=== PATIENT | female | born 1935 ===

== ENCOUNTER 2020-03-07 09:48 | Emergency (ER) | payer OTHER, SELFPAY ==
[2020-03-07 10:35] LABS: Absolute Lymphocytes (CBC) 1.1 K/uL (0.7-4.9); Hematocrit 43.1 % (36.0-45.0); Lymphocytes % 24.9 % (15.3-44.8); MPV 9.9 fL (7.6-11.3); RBC Red Blood Cell Count 4.74 M/uL (3.86-4.86)
[2020-03-07 10:50] LABS: Potassium 4.1 mmol/L (3.5-5.1)
--- NOTE | 2020-03-07 11:51 | RAD REPORT ---
EXAM DESCRIPTION: CT - CTHCSPWOC - 03/07/2020 10:59 am CLINICAL HISTORY: AMS, fall from wheelchair, head and neck trauma COMPARISON: No comparisons TECHNIQUE: Axial 5 mm thick images of the head were obtained. Axial 2 mm thick images of the cervic al spine were obtained with sagittal and coronal reconstruction images generated and reviewed. All CT scans are performed using dose optimization technique as appropriate and may include automated exposure control or mA/KV adjustment according to patient size. FINDINGS: No intracranial hemorrhage, mass, edema or acute intracranial finding. No suspicion for ac wilton infarction. No extra-axial fluid collections. Mastoid air cells and paranasal sinuses are clear. No globe or orbit abnormality seen. No skull fracture is present. The patient has advanced atrophy an d chronic ischemic change. Ventricles are in proportion to the amount of volume loss. Cervical body height and alignment are normal. All levels show disc space narrowing. Endplate spurrin g seen throughout the cervical spine. Uncovertebral joint hypertrophy is present at multiple levels. There is mild right foraminal encroachment at C3-4. Moderate bilateral foraminal stenosis at C4-5 and C5-6. Advanced left foraminal stenosis at C6-7. No fracture or acute bony abnormality. Central felicia l detail is inherently limited. No paraspinal mass or hematoma. IMPRESSION: Advanced atrophy and chronic ischemic change with no acute intracranial finding. Advanced degenerative change of the cervical spine as detailed. No acute finding.
--- NOTE | 2020-03-07 12:12 | RAD REPORT ---
EXAM DESCRIPTION: RAD - Pelvis - 03/07/2020 11:02 am CLINICAL HISTORY: AMS COMPARISON: No comparisons TECHNIQUE: AP imaging of the pelvis was obtained. FINDINGS: Bilateral superior pubic rami at pubic symphysis show evidence for fracture. There appears to be remodeling change in this is most likely old injury. Correlation is needed with any acute pain symptoms at the pubic symphysis. Overlying bowel content limits detail. No ischium fracture confirme d. Iliac bones are intact. Mild SI joint degenerative change present. No proximal femur fracture or dislocation. IMPRESSION: Bilateral superior pubic rami fractures of the pubic symphysis are present but appear to be chronic. Overlying superimposed bowel limits assessment. No proximal femur fracture identified.
--- NOTE | 2020-03-07 12:42 | EDPHYS ---
Physician Documentation [facility] Name: Angelica Pierre Age: 84 yrs Sex: Female : 1935 Arrival Date: 03/07/2020 Time: 09:50 Bed 16 Private MD: ED Physician Isaac Chen HPI: 03/07 18:05 This 84 yrs old Unknown Female presents to ER via EMS with complaints of confused, kdr possible hip fracture. 18:05 The patient was sent from [place] for possible hip fracture. There is no certain kdr mechanism. The patient has significant dementia and is unable to assist in the evaluation in any way. Onset: The symptoms/episode began/occurred at an unknown time. Severity of symptoms: At their worst the symptoms were. It is unknown whether or not the patient has had similar symptoms in the past. The patient has not recently seen a physician. Historical: - Allergies: 10:09 codeine sulfate; ph 10:09 Erythromycin; ph 10:09 meloxicam; ph 10:09 Remeron; ph - Home Meds: 13:15 Bumex Oral 0.5 mg every 48 hrs [Active]; buspirone 10 mg Oral tab 2 tabs 3 times per ca1 day [Active]; Depakote 125 mg Oral TbEC 6 tab 2 times per day [Active]; escitalopram oxalate 10 mg oral tab 1 tab once daily [Active]; Klonopin 0.5 mg Oral tab 1 tab 2 times per day [Active]; levothyroxine 125 mcg tab 1 tab once daily [Active]; memantine 10 mg oral tab 1 tab 2 times per day [Active]; metoprolol tartrate 25 mg Oral tab 1 tab once daily [Active]; potassium chloride 10 mEq Oral cpER 1 cap once daily [Active]; - PMHx: 10:09 malnutrition; COVID; Hypothyroidism; Hyperlipidemia; Dementia; Depression; delusional ph disorder; - Immunization history:: Adult Immunizations unknown. - Social history:: Smoking status: unknown. ROS: 18:05 Constitutional: Unable to obtain Eyes: Negative for injury, pain, redness, and kdr discharge, Neck: Negative for injury, pain, and swelling. 18:05 Unable to obtain ROS due to baseline dementia. Exam: 18:05 Constitutional: This is a well developed, well nourished patient who is awake, alert, kdr and in no acute distress. Head/Face: Normocephalic, atraumatic. Eyes: Pupils equal round and reactive to light, extra-ocular motions intact. Lids and lashes normal. Conjunctiva and sclera are non-icteric and not injected. Cornea within normal limits. Periorbital areas with no swelling, redness, or edema. Neck: Trachea midline, no thyromegaly or masses palpated, and no cervical lymphadenopathy. Supple, full range of motion without nuchal rigidity, or vertebral point tenderness. No Meningismus. Chest/axilla: Normal chest wall appearance and motion. Nontender with no deformity. No lesions are appreciated. Cardiovascular: Regular rate and rhythm with a normal S1 and S2. No gallops, murmurs, or rubs. Normal PMI, no JVD. No pulse deficits. Respiratory: Lungs have equal breath sounds bilaterally, clear to auscultation and percussion. No rales, rhonchi or wheezes noted. No increased work of breathing, no retractions or nasal flaring. Abdomen/GI: Soft, non-tender, with normal bowel sounds. No distension or tympany. No guarding or rebound. No evidence of tenderness throughout. Back: No spinal tenderness. No costovertebral tenderness. Full range of motion. Skin: Warm, dry with normal turgor. Normal color with no rashes, no lesions, and no evidence of cellulitis. MS/ Extremity: Pulses equal, no cyanosis. Neurovascular intact. Full, normal range of motion. 18:05 Neuro: Orientation: unable to test, the patient has a history of dementia. Vital Signs: 10:04 BP 152 / 109; Pulse 81; Resp 18; Temp 98.0; Pulse Ox 95% on R/A; ph 11:00 BP 115 / 72; Pulse 85; Resp 19 S; Pulse Ox 100% on R/A; ca1 11:53 BP 126 / 48; Pulse 48; Resp 15 S; Pulse Ox 100% on R/A; ca1 12:28 BP 131 / 85; Pulse 57; Resp 16 S; Pulse Ox 100% on R/A; ca1 13:42 BP 125 / 85; Pulse 59; Resp 15 S; Pulse Ox 100% on R/A; ca1 14:50 BP 131 / 73; Pulse 61; Resp 16 S; Pulse Ox 100% on R/A; ca1 15:55 BP 128 / 81; Pulse 67; Resp 16 S; Pulse Ox 100% on R/A; ca1 MDM: 12:42 Patient medically screened. kdr 18:10 Data reviewed: vital signs, nurses notes, lab test result(s), radiologic studies. kdr Counseling: I had a detailed discussion with the patient and/or guardian regarding: the historical points, exam findings, and any diagnostic results supporting the discharge/admit diagnosis, lab results, radiology results, the need for outpatient follow up. 03/07 10:06 Order name: CBC with Diff; Complete Time: 11:48 kdr 03/07 10:06 Order name: Chem 7; Complete Time: 11:48 kdr 03/07 10:06 Order name: CT Head C Spine; Complete Time: 12:34 kdr 03/07 10:06 Order name: Pelvis XRAY; Complete Time: 12:34 kdr 03/07 12:58 Order name: Urine Dipstick--Ancillary (enter results) em1 03/07 10:06 Order name: Urine Dipstick-Ancillary (obtain specimen); Complete Time: 12:28 kdr Administered Medications: 13:04 Drug: Bactrim - Trimethoprim-Sulfamethoxazole (40mg - 200mg / 5mL) 4 tsp Route: PO; ca1 13:16 Follow up: Response: No adverse reaction ca1 Disposition: 03/07/20 12:42 Discharged to Home. Impression: Altered mental status, unspecified, Urinary tract infection, site not specified. - Condition is Stable. - Discharge Instructions: Confusion, Urinary Tract Infection, Adult, [id number]-[id number]. - Prescriptions for sulfamethoxazole- trimethoprim 200-40 mg/5 mL Oral Suspension - take 20 milliliter by ORAL route every 12 hours for 7 days; 280 milliliter. - Medication Reconciliation Form, Thank You Letter, Antibiotic Education, SBAR form form. - Follow up: Private Physician; When: 2 - 3 days; Reason: If symptoms return, Further diagnostic work-up, Recheck today's complaints, Continuance of care, Re-evaluation by your physician. - Problem is new. - Symptoms have improved. Signatures: Dispatcher [employer] Isaac Vallecillo MD MD kdr Janeth Zacarias RN RN ph AcobDestiny RN RN ca1 Corrections: (The following items were deleted from the chart) 10:22 10:10 Immunization history: Adult Immunizations up to date, ca1 ca1 16:36 12:42 03/07/2020 12:42 Discharged to Home. Impression: Altered mental status, ca1 unspecified; Urinary tract infection, site not specified. Condition is Stable. Forms are Medication Reconciliation Form, Thank You Letter, Antibiotic Education, Prescription Opioid Use. Follow up: Private Physician; When: 2 - 3 days; Reason: If symptoms return, Further diagnostic work-up, Recheck today's complaints, Continuance of care, Re-evaluation by your physician. Problem is new. Symptoms have improved. kdr
--- NOTE | 2020-03-07 12:42 | ER ---
Nurse's Notes [facility] Name: Angelica Pierre Age: 84 yrs Sex: Female : 1935 Arrival Date: 03/07/2020 Time: 09:50 Bed 16 Private MD: Diagnosis: Altered mental status, unspecified;Urinary tract infection, site not specified Presentation: 03/07 10:04 Chief complaint: EMS states: Pt from [place] hx of dementia, EMS called for possible ph hip fracture d/t pt falling from wheelchair, no obvious injuries noted to pt, no shortening or rotation of legs, no pain noted upon palpation, pt crying and appears frightened upon arrival to ED. Coronavirus screen: Client denies travel out of the [place] in the last 14 days. At this time, the client does not indicate any symptoms associated with coronavirus-19. Ebola Screen: No symptoms or risks identified at this time. Initial Sepsis Screen: Does the patient meet any 2 criteria? No. Patient's initial sepsis screen is negative. Does the patient have a suspected source of infection? No. Patient's initial sepsis screen is negative. Risk Assessment: Do you want to hurt yourself or someone else? Patient reports no desire to harm self or others. Onset of symptoms was March 07, 2020. 10:04 Method Of Arrival: EMS: [facility] ph 10:04 Acuity: CAROL 3 ph Historical: - Allergies: 10:09 codeine sulfate; ph 10:09 Erythromycin; ph 10:09 meloxicam; ph 10:09 Remeron; ph - Home Meds: 13:15 Bumex Oral 0.5 mg every 48 hrs [Active]; buspirone 10 mg Oral tab 2 tabs 3 times per ca1 day [Active]; Depakote 125 mg Oral TbEC 6 tab 2 times per day [Active]; escitalopram oxalate 10 mg oral tab 1 tab once daily [Active]; Klonopin 0.5 mg Oral tab 1 tab 2 times per day [Active]; levothyroxine 125 mcg tab 1 tab once daily [Active]; memantine 10 mg oral tab 1 tab 2 times per day [Active]; metoprolol tartrate 25 mg Oral tab 1 tab once daily [Active]; potassium chloride 10 mEq Oral cpER 1 cap once daily [Active]; - PMHx: 10:09 malnutrition; COVID; Hypothyroidism; Hyperlipidemia; Dementia; Depression; delusional ph disorder; - Immunization history:: Adult Immunizations unknown. - Social history:: Smoking status: unknown. Screenin:10 Abuse screen: Denies threats or abuse. Denies injuries from another. Nutritional ca1 screening: No deficits noted. Tuberculosis screening: No symptoms or risk factors identified. Fall Risk Fall in past 12 months (25 points). Secondary diagnosis (15 points) dementia, IV access (20 points). Ambulatory Aid- Crutches/Cane/Walker (15 pts). Total Urbano Fall Scale indicates High Risk Score (45 or more points). Fall prevention measures have been instituted. Side Rails Up X 2 Frequent Obs/Assessments Occuring. Assessment: 10:10 General: Appears in no apparent distress. slender, Behavior is anxious, crying. Pain: ca1 Noted to be crying, Unable to use pain scale. Does not appear to understand pain scale. Neuro: Level of Consciousness is awake, confused, Oriented to none. Cardiovascular: Heart tones S1 S2 present Capillary refill < 3 seconds Patient's skin is warm and dry. Respiratory: Airway is patent Respiratory effort is even, unlabored, Respiratory pattern is regular, symmetrical, Breath sounds are clear bilaterally. GI: Abdomen is flat, non-distended, Bowel sounds present X 4 quads. Abd is soft and non tender X 4 quads. : No signs and/or symptoms were reported regarding the genitourinary system. EENT: No signs and/or symptoms were reported regarding the EENT system. Derm: Skin is fragile, is thin, Skin is pink, warm \T\ dry. Bruising that is dark purple, on right arm. Musculoskeletal: Circulation, motion, and sensation intact. Capillary refill < 3 seconds. 11:00 Reassessment: Patient appears in no apparent distress at this time. No changes from ca1 previously documented assessment. Patient and/or family updated on plan of care and expected duration. Pain level reassessed. 11:53 Reassessment: Patient appears in no apparent distress at this time. No changes from ca1 previously documented assessment. Patient and/or family updated on plan of care and expected duration. Pain level reassessed. 12:55 Reassessment: Patient appears in no apparent distress at this time. No changes from ca1 previously documented assessment. Patient and/or family updated on plan of care and expected duration. Pain level reassessed. 13:00 Reassessment: faxed lab results and notes to [facility]. 13:40 Reassessment: spoke with Ryann, has reviewed results and will arrange [facility] to transport pt back to facility. 14:10 Reassessment: Patient appears in no apparent distress at this time. No changes from ca1 previously documented assessment. Awaiting transport. 15:03 Reassessment: Patient appears in no apparent distress at this time. No changes from ca1 previously documented assessment. [facility] ambulance ETA 15 minutes. 15:50 Reassessment: Patient appears in no apparent distress at this time. No changes from ca1 previously documented assessment. Vital Signs: 10:04 BP 152 / 109; Pulse 81; Resp 18; Temp 98.0; Pulse Ox 95% on R/A; ph 11:00 BP 115 / 72; Pulse 85; Resp 19 S; Pulse Ox 100% on R/A; ca1 11:53 BP 126 / 48; Pulse 48; Resp 15 S; Pulse Ox 100% on R/A; ca1 12:28 BP 131 / 85; Pulse 57; Resp 16 S; Pulse Ox 100% on R/A; ca1 13:42 BP 125 / 85; Pulse 59; Resp 15 S; Pulse Ox 100% on R/A; ca1 14:50 BP 131 / 73; Pulse 61; Resp 16 S; Pulse Ox 100% on R/A; ca1 15:55 BP 128 / 81; Pulse 67; Resp 16 S; Pulse Ox 100% on R/A; ca1 ED Course: 09:50 Patient arrived in ED. em1 09:55 Isaac Chen MD is Attending Physician. kdr 09:57 Destiny Lackey, KEYANA is Primary Nurse. ca1 10:06 Triage completed. ph 10:09 Arm band placed on Patient placed in an exam room, on a stretcher, on pulse oximetry. ph 10:10 Patient has correct armband on for positive identification. Placed in gown. Bed in low ca1 position. Call light in reach. Side rails up X2. Pulse ox on. NIBP on. Warm blanket given. 10:11 Destiny Lackey, RN is Primary Nurse. ca1 10:18 Initial lab(s) drawn, by ms, sent to lab. Inserted saline lock: 22 gauge in left ca1 antecubital area, using aseptic technique. Blood collected. 10:20 Chem 7 Sent. ca1 10:20 CBC with Diff Sent. ca1 11:00 CT Head C Spine In Process Unspecified. EDMS 11:04 Pelvis XRAY In Process Unspecified. EDMS 12:28 Straight cath inserted, using sterile technique, 18 Fr. Specimen obtained. Returned ca1 blas urine. Patient tolerated well. 14:11 No provider procedures requiring assistance completed. ca1 16:14 IV discontinued, intact, bleeding controlled, No redness/swelling at site. Pressure ca1 dressing applied. Administered Medications: 13:04 Drug: Bactrim - Trimethoprim-Sulfamethoxazole (40mg - 200mg / 5mL) 4 tsp Route: PO; ca1 13:16 Follow up: Response: No adverse reaction ca1 Output: 12:28 Urine: 250ml (Straight Cath); Total: 250ml. ca1 Outcome: 12:42 Discharge ordered by . kdr 16:14 Discharged to senior care. Report called to Report by KEYANA Hartleysenior construction estimator form ca1 completed. 16:14 Condition: stable 16:14 Discharge instructions given to EMS, Instructed on discharge instructions, follow up and referral plans. 16:36 Patient left the ED. ca1 Signatures: Dispatcher [employer] EDMS Isaac Chen MD MD kdr Odilia Mejia, Bonifacio Winston RN 1 Janeth Zacarias RN RN Destiny Meneses RN RN ca1 Corrections: (The following items were deleted from the chart) 10:22 10:10 Immunization history: Adult Immunizations up to date, ca1 ca1
[2020-03-07 13:01] LABS: Urine Blood NEGATIVE (NEG); Urine Glucose NEGATIVE (NEG); Urine Protein NEGATIVE (NEG)
[2020-03-07] MEDS ORDERED: SULFAMETH/TRIMETHOPRIM 240 MG/30 ML UDBOT ONE (13:05)
[2020-03-07 17:04] VITALS: TEMP 98
[2020-03-07 17:05] VITALS: O2SAT 100
[2020-03-07 17:15] VITALS: BP 128/81
== END 2020-03-07 16:36 | disposition home or self-care (01) ==
LOC: ER 09:48
DX: N39.0 Urinary tract infection, site not specified (principal); E03.9 Hypothyroidism, unspecified; E78.5 Hyperlipidemia, unspecified; F03.90 Unspecified dementia, unspecified severity, without behavioral disturbance, psychotic disturbance, mood disturbance, and anxiety; Z86.19 Personal history of other infectious and parasitic diseases; Z88.3 Allergy status to other anti-infective agents; Z88.5 Allergy status to narcotic agent; Z88.6 Allergy status to analgesic agent; Z88.8 Allergy status to other drugs, medicaments and biological substances
CPT/HCPCS: 36415; 51702; 70450; 72125; 72170; 80048; 81003; 85025; 99284

== ENCOUNTER 2020-08-24 12:22 | Inpatient (IN) | payer OTHER ==
--- OUTSIDE RECORDS SUMMARY | 2020-08-24 12:25 | XMS REPORT | Continuity of Care Document ---
:1935 Author Organization [facility] t Address [address] [place] [address] Care Team Providers Name Role Phone Domingo Klein DO Attending Clinician Parker ROGER, Bhaskar Attending Clinician Marcos ROGER, Presley Attending Clinician Problems This patient has no known problems. Allergies, Adverse Reactions, Alerts This patient has no known allergies or adverse reactions. Medications This patient has no known medications. Procedures This patient has no known procedures. Encounters Start End Encounter Admission Attending Care Care Encounter Source Date/Time Date/Time Type Type Clinicians Facility Department ID 2020-05-29 2020-05-29 Patient ANI Klein [id number] 00:00:00 00:00:00 Outreach [facility] [id number] Domingo [facility] [id number] MARGARITO [id number] 2019-12-18 2019-12-18 ANI Delgado [id number] 00:00:00 00:00:00 [facility] [id number] Bhaskar Burgos [id number] Proflou [phone] [address]al [address] 2019-11-19 2019-11-19 RefANI Howell [id number] 00:00:00 00:00:00 [facility] [id number] Bhaskar [place] [id number] Professio [phone] nal [address] 2019-11-14 2019-11-14 Pre Visit [facility] [id number] 00:00:00 00:00:00 Outreach Fer [place] [id number] Edhenrietta Given [id number] Professio [phone] nal [facility] Building 2019-11-14 2019-11-14 Telephone [facility] [id number] 00:00:00 00:00:00 [place] Loretta [id number] Given [id number] Professio [phone] [address] 2019-11-11 2019-11-11 Telephone [facility] [id number] 00:00:00 00:00:00 [place] [id number] Given [id number] Professio [phone] [address] Results This patient has no known results.
[2020-08-24 13:14] LABS: Absolute Lymphocytes (CBC) 1.5 K/uL (0.7-4.9); Basophils % 0.8 % (0-1.3); Hematocrit 33.9 % (36.0-45.0); Lymphocytes % 36.5 % (15.3-44.8); MPV 9.1 fL (7.6-11.3); RBC Red Blood Cell Count 3.35 M/uL (3.86-4.86)
[2020-08-24] MEDS ORDERED: NA CHLORIDE 0.9% 1,000 ML ONE ×3 (13:15→17:12)
--- NOTE | 2020-08-24 13:28 | RAD REPORT ---
EXAM DESCRIPTION: RAD - Chest Single View - 08/24/2020 1:12 pm CLINICAL HISTORY: hypotensive Chest pain. COMPARISON: No comparisons FINDINGS: Portable technique limits examination quality. Opacity is noted in the right lung base with a small pleural effusion suspicious for infiltrate/ pneu monia. The heart is mildly enlarged in size with a tortuous thoracic aorta. No displaced fractures.
[2020-08-24 13:31] LABS: ALT/SGPT 12 U/L (12-78); AST/SGOT 14 U/L (15-37); Albumin 2.4 g/dL (3.4-5.0); Alkaline Phosphatase 59 U/L (45-117); BUN Blood Urea Nitrogen 17 mg/dL (7-18); Bicarbonate 26 mmol/L (21-32); Bilirubin Direct < 0.1 mg/dL (0-0.2); Bilirubin Total 0.2 mg/dL (0.2-1.0); Creatine Phosphokinase 52 U/L (26-192); Glucose Level 81 mg/dL (74-106); Lipase 387 U/L (73-393); Potassium 3.9 mmol/L (3.5-5.1); Protein, Total 5.3 g/dL (6.4-8.2); Sodium Level 148 mmol/L (136-145); Troponin (Emerg Dept Use Only) < 0.02 ng/mL (0.0-0.045)
[2020-08-24] MEDS ORDERED: ALBUTEROL 2.5 MG/3 ML NEB SOL NEB PRN (14:24)
[2020-08-24] MEDS ORDERED: ACETAMINOPHEN 500 MG TAB PO PRN (14:24)
--- NOTE | 2020-08-24 14:24 | ER ---
Nurse's Notes [facility] Name: Angelica Pierre Age: 84 yrs Sex: Female : 1935 Arrival Date: 08/24/2020 Time: 12:41 Bed 8 Private MD: Diagnosis: Sepsis, unspecified organism;Pneumonia, unspecified organism;Altered mental status, unspecified;Hypothermia Presentation: 08/24 12:35 Chief complaint: EMS states: called out for pt being unresponsive from [facility]. On sv EMS arrival pt was screaming (pt's normal, hx Dementia). SBP 60-70s. Staff reported pt had fallen on Sunday and obtained a skin tear to the left elbow. Coronavirus screen: Client denies travel out of the [place] in the last 14 days. At this time, the client does not indicate any symptoms associated with coronavirus-19. Ebola Screen: No symptoms or risks identified at this time. Risk Assessment: Do you want to hurt yourself or someone else? Patient reports no desire to harm self or others. Onset of symptoms was August 24, 2020. 12:35 Method Of Arrival: EMS: [facility] sv 12:35 Acuity: CAROL 3 sv 14:36 Initial Sepsis Screen: Does the patient meet any 2 criteria? Temp <36.0*C (96.8*F)) or ap3 > 38.3*C (100.9*F). Altered Mental Status. Yes Does the patient have a suspected source of infection? No. Patient's initial sepsis screen is negative. Historical: - Allergies: 12:53 codeine sulfate; sv 12:53 Erythromycin; sv 12:53 meloxicam; sv 12:53 Remeron; sv - PMHx: 12:53 COVID; Depression; Delusional disorder; Dementia; Hyperlipidemia; Hypothyroidism; sv Malnutrition; Psychotic disorder; Delusional disorder; Anxiety; Alzheimers; Hypertension; osteoarthritis; - Immunization history:: Adult Immunizations up to date. - Social history:: Smoking status: Patient denies any tobacco usage or history of. - Family history:: not pertinent. - Hospitalizations: : No recent hospitalization is reported. Screenin:07 Abuse screen: Denies threats or abuse. Nutritional screening: unable to obtain at this ap3 time. Tuberculosis screening: No symptoms or risk factors identified. Fall Risk Fall in past 12 months (25 points). Secondary diagnosis (15 points) dementia, IV access (20 points). Ambulatory Aid- None/Bed Rest/Nurse Assist (0 pts). Gait- Normal/Bed Rest/Wheelchair (0 pts) Mental Status- Overestimates/Forgets Limitations (15 pts.). Total Urbano Fall Scale indicates High Risk Score (45 or more points). Fall prevention measures have been instituted. Side Rails Up X 2 Placed Close to Nursing Station Frequent Obs/Assessments Occuring. Assessment: 13:08 General: Appears in no apparent distress. Behavior is flat, pt yells when she is moved. ap3 Pain: Unable to use pain scale. Patient is disoriented. Does not appear to understand pain scale. Neuro: Level of Consciousness is awake, confused, Oriented to person, can't properly assess orientation. Cardiovascular:. Respiratory: Airway is patent Respiratory effort is even, unlabored, Respiratory pattern is regular, symmetrical. : pt arrived via EMS in brief. brief is dry at this time. EENT:. Derm: Wound noted left elbow Other: noted skin tear from reported fall 08/21/20. Musculoskeletal: patient favors laying to the right side. 19:15 Reassessment: Patient appears in no apparent distress at this time. Patient and/or wh family updated on plan of care and expected duration. Pain level reassessed. Vital Signs: 12:35 BP 96 / 43; Pulse 62; Resp 14; Pulse Ox 100% ; sv 13:06 BP 86 / 48; Pulse 65; Pulse Ox 100% on R/A; ap3 13:27 Temp 94.3(R); ap3 13:51 BP 90 / 40; Pulse 61; Resp 15 S; Pulse Ox 100% on R/A; jl7 14:00 BP 129 / 66; Pulse 62 MON; Resp 15; Pulse Ox 100% on R/A; sv 15:06 BP 123 / 59; Pulse 68; Pulse Ox 100% on R/A; ap3 20:00 BP 115 / 67; Pulse 68; Resp 18; Pulse Ox 98% on R/A; wh 14:00 Sinus Rhythm sv ED Course: 12:35 Patient has correct armband on for positive identification. Placed in gown. Bed in low sv position. Call light in reach. Side rails up X2. laboratory monitor on. Pulse ox on. NIBP on. Warm blanket given. Head of bed elevated. 12:35 Maintain EMS IV. Dressing intact. Site clean \T\ dry. Gauge \T\ site: 20G R hand. sv 12:41 Patient arrived in ED. rn 12:41 Levon Sotelo MD is Attending Physician. rn 12:48 Kavya Calix RN is Primary Nurse. sv 12:51 Triage completed. sv 12:53 Arm band placed on. sv 13:00 Initial lab(s) drawn, by me, sent to lab. ap3 13:11 Chest Single View XRAY In Process Unspecified. EDMS 13:50 First set of blood cultures drawn by me. sv 13:58 Second set of blood cultures drawn by me. sv 14:05 Straight cath inserted, using sterile technique, 16 Fr. Specimen obtained. Returned sv clear yellow urine. Patient tolerated well. 14:20 Urine Culture Sent. sv 14:20 Basic Metabolic Panel Sent. sv 14:20 Blood Culture Adult (2) Sent. sv 14:20 CBC with Diff Sent. sv 14:20 CPK Sent. sv 14:20 Lactate Sent. sv 14:20 LFT's Sent. sv 14:20 Lipase Sent. sv 14:20 Procalcitonin Sent. sv 14:23 Dejuan Schroeder MD is Hospitalizing Provider. rn 14:41 EKG done, by ED staff, reviewed by Levon Sotelo MD. ap3 19:25 Primary Nurse role handed off by Kavya Calix, KEYANA mw2 20:11 No provider procedures requiring assistance completed. Patient admitted, IV remains in place. 20:19 Adrián Renee, RN is Primary Nurse. Administered Medications: 13:00 Drug: NS 0.9% 1000 ml Route: IV; Rate: 1000 ml; Site: right hand; sv 20:12 Follow up: Response: No adverse reaction; IV Status: Completed infusion 14:34 Drug: Zosyn 3.375 grams Route: IVPB; Infused Over: 60 mins; Site: right hand; ap3 20:12 Follow up: Response: No adverse reaction; IV Status: Completed infusion 14:34 Drug: NS 0.9% 1000 ml Route: IV; Rate: 1000 ml; Site: right hand; ap3 20:12 Follow up: Response: No adverse reaction; IV Status: Completed infusion Output: 14:05 Urine: 1000ml (Straight Cath); Total: 1000ml. ap3 Outcome: 14:24 Decision to Hospitalize by Provider. rn 20:12 Admitted to Med/surg accompanied by tech, via stretcher, room 225, with chart, Report called to Dread Nash RN 20:12 Condition: stable 20:12 Instructed on the need for admit. 20:19 Patient left the ED. Signatures: Dispatcher [employer] Kavya Craft, RN Levon Mujica MD MD rn Leal, Jahala RN RN jl7 Adrián Renee RN KEYANA Maribel Malone RN RN ap3 Evaristo Tse 2
--- NOTE | 2020-08-24 14:25 | EDPHYS ---
Physician Documentation [facility] Name: Angelica Pierre Age: 84 yrs Sex: Female : 1935 Arrival Date: 08/24/2020 Time: 12:41 Bed 8 Private MD: ED Physician Levon Sotelo HPI: 08/24 13:18 This 84 yrs old Unknown Female presents to ER via EMS with complaints of Altered Mental rn Status, low BP. 13:18 The patient presents with agitation, confusion, decreased responsiveness. Onset: The rn symptoms/episode began/occurred at an unknown time. Possible causes: unknown. Current symptoms: In the emergency department the patient's symptoms are unchanged from the initial presentation. It is unknown whether or not the patient has had similar symptoms in the past. Per EMS, shelter called for AMS, decreased responsiveness, and low BP, unknown onset, patient with dementia and does not complain of anything specifically. No interventions other than IV and started fluids, BP still low. . Historical: - Allergies: 12:53 codeine sulfate; sv 12:53 Erythromycin; sv 12:53 meloxicam; sv 12:53 Remeron; sv - PMHx: 12:53 COVID; Depression; Delusional disorder; Dementia; Hyperlipidemia; Hypothyroidism; sv Malnutrition; Psychotic disorder; Delusional disorder; Anxiety; Alzheimers; Hypertension; osteoarthritis; - Immunization history:: Adult Immunizations up to date. - Social history:: Smoking status: Patient denies any tobacco usage or history of. - Family history:: not pertinent. - Hospitalizations: : No recent hospitalization is reported. ROS: 13:18 Constitutional: Negative for fever, chills, and weight loss, Eyes: Negative for injury, rn pain, redness, and discharge, Neck: Negative for injury, pain, and swelling, Cardiovascular: Negative for chest pain, palpitations, and edema, Respiratory: Negative for shortness of breath, cough, wheezing, and pleuritic chest pain, Abdomen/GI: Negative for abdominal pain, nausea, vomiting, diarrhea, and constipation, Back: Negative for injury and pain, : Negative for injury, bleeding, discharge, and swelling, MS/Extremity: Negative for injury and deformity, Skin: Negative for injury, rash, and discoloration, Neuro: Negative for headache, weakness, numbness, tingling, and seizure. Exam: 13:18 Constitutional: This is a well developed, well nourished patient who is awake, alert, rn and in no acute distress. Head/Face: Normocephalic, atraumatic. Eyes: Periorbital areas with no swelling, redness, or edema. Cardiovascular: Regular rate and rhythm. No pulse deficits. Respiratory: No increased work of breathing, no retractions or nasal flaring. Abdomen/GI: soft, non-tender Back: No spinal tenderness. No costovertebral tenderness. Full range of motion. Skin: Warm, dry, no cyanosis MS/ Extremity: Pulses equal, no cyanosis. Neurovascular intact. Full, normal range of motion. Equal circumference. Neuro: Awake and alert, moves all 4 extremities slowly, no gross deformity noted. Vital Signs: 12:35 BP 96 / 43; Pulse 62; Resp 14; Pulse Ox 100% ; sv 13:06 BP 86 / 48; Pulse 65; Pulse Ox 100% on R/A; ap3 13:27 Temp 94.3(R); ap3 13:51 BP 90 / 40; Pulse 61; Resp 15 S; Pulse Ox 100% on R/A; jl7 14:00 BP 129 / 66; Pulse 62 MON; Resp 15; Pulse Ox 100% on R/A; sv 15:06 BP 123 / 59; Pulse 68; Pulse Ox 100% on R/A; ap3 20:00 BP 115 / 67; Pulse 68; Resp 18; Pulse Ox 98% on R/A; wh 14:00 Sinus Rhythm sv MDM: 12:41 Patient medically screened. rn 14:21 Differential Diagnosis: electrolyte abnormality, pneumonia, sepsis, UTI, volume rn depletion. Data reviewed: vital signs, nurses notes, lab test result(s), EKG, radiologic studies, plain films, and as a result, I will admit patient. Counseling: I had a detailed discussion with the patient and/or guardian regarding: the historical points, exam findings, and any diagnostic results supporting the discharge/admit diagnosis, lab results, radiology results, the need for further work-up and treatment in the hospital. Response to treatment: the patient's symptoms have markedly improved after treatment, and as a result, I will admit patient. Admission orders: after a detailed discussion of the patient's condition and case, the admit orders are written by me. ED course: CXR shows right sided infiltrate concerning for pneumonia, BP responsive to fluids, no pressors needed at this point, admitted to Hospitalist service for sepsis and pneumonia. . 08/24 12:43 Order name: Urine Culture rn 08/24 12:43 Order name: Basic Metabolic Panel rn 08/24 12:43 Order name: Blood Culture Adult (2) rn 08/24 12:43 Order name: CBC with Diff rn 08/24 12:43 Order name: CPK rn 08/24 12:43 Order name: Lactate rn 08/24 12:43 Order name: LFT's rn 08/24 12:43 Order name: Lipase rn 08/24 12:43 Order name: Procalcitonin rn 08/24 12:43 Order name: Troponin (emerg Dept Use Only); Complete Time: 13:33 rn 08/24 12:43 Order name: Urine Microscopic Only rn 08/24 12:43 Order name: Urine Culture EDUT 08/24 12:43 Order name: Basic Metabolic Panel; Complete Time: 13:33 EDMS 08/24 12:43 Order name: Blood Culture EDUT 08/24 12:43 Order name: CBC with Automated Diff; Complete Time: 13:30 EDMS 08/24 12:43 Order name: Creatine Phosphokinase; Complete Time: 13:33 EDMS 08/24 12:43 Order name: Lactate; Complete Time: 13:33 EDMS 08/24 12:43 Order name: Liver (Hepatic) Function; Complete Time: 13:33 EDMS 08/24 12:43 Order name: Lipase; Complete Time: 13:33 EDMS 08/24 12:43 Order name: Procalcitonin; Complete Time: 14:11 EDMS 08/24 14:21 Order name: Urine Dipstick--Ancillary (enter results) bd 08/24 14:28 Order name: Basic Metabolic Panel EDMS 08/24 14:28 Order name: Basic Metabolic Panel EDUT 08/24 14:28 Order name: CBC with Automated Diff EDMS 08/24 14:28 Order name: CBC with Automated Diff EDMS 08/24 14:28 Order name: Magnesium EDMS 08/24 14:28 Order name: Magnesium EDMS 08/24 14:28 Order name: Phosphorus EDMS 08/24 12:43 Order name: Cath; Complete Time: 14:19 rn 08/24 12:43 Order name: Chest Single View XRAY; Complete Time: 13:30 rn 08/24 12:43 Order name: Cardiac monitoring; Complete Time: 12:54 rn 08/24 12:43 Order name: EKG - Nurse/Tech; Complete Time: 14:46 rn 08/24 12:43 Order name: IV Saline Lock - Large Bore; Complete Time: 13:05 rn 08/24 12:43 Order name: Labs collected and sent; Complete Time: 14:19 rn 08/24 12:43 Order name: O2 Per Protocol; Complete Time: 12:54 rn 08/24 12:43 Order name: O2 Sat Monitoring; Complete Time: 12:54 rn 08/24 12:43 Order name: Urine Dipstick-Ancillary (obtain specimen); Complete Time: 14:46 rn 08/24 14:28 Order name: Heart Healthy EDUT 08/24 14:28 Order name: Phosphorus EDUT 08/24 14:59 Order name: COVID-19/FLU A+B EDMS Administered Medications: 13:00 Drug: NS 0.9% 1000 ml Route: IV; Rate: 1000 ml; Site: right hand; sv 20:12 Follow up: Response: No adverse reaction; IV Status: Completed infusion 14:34 Drug: Zosyn 3.375 grams Route: IVPB; Infused Over: 60 mins; Site: right hand; ap3 20:12 Follow up: Response: No adverse reaction; IV Status: Completed infusion 14:34 Drug: NS 0.9% 1000 ml Route: IV; Rate: 1000 ml; Site: right hand; ap3 20:12 Follow up: Response: No adverse reaction; IV Status: Completed infusion Disposition: 14:21 Critical Care:. rn Disposition: 08/24/20 14:24 Hospitalization ordered by Dejuan Schroeedr for Inpatient Admission. Preliminary diagnosis are Sepsis, unspecified organism, Pneumonia, unspecified organism, Altered mental status, unspecified, Hypothermia. - Bed requested for Telemetry/MedSurg (Inpatient). - Status is Inpatient Admission. - Condition is Stable. - Problem is new. - Symptoms have improved. Critical care time excluding procedures: 14:21 Critical care time: Bedside Care: 25 minutes, Consultation: 5 minutes. Total time: 30 rn minutes Signatures: Dispatcher [facility] Kavya Calix RN RN sv Levon Sotelo MD MD rn Garcia, Cindy, RN RN Adrián Renee, KEYANA RN Maribel Malone RN RN ap3 Corrections: (The following items were deleted from the chart) 14:04 12:43 Influenza Screen (A \T\ B)+BA.LAB.BRZ ordered. EDMS EDMS 14:04 12:43 CORONAVIRUS+MR.LAB.BRZ ordered. EDUT EDMS 14:20 12:43 Accucheck ordered. rn sv 14:24 14:24 Hospitalization Ordered by Dejuan Schroeder MD for Inpatient Admission. Preliminary rn diagnosis is Sepsis, unspecified organism; Pneumonia, unspecified organism; Altered mental status, unspecified. Bed requested for Telemetry/MedSurg (Inpatient). Status is Inpatient Admission. Condition is Stable. Problem is new. Symptoms have improved. rn 15:07 14:24 08/24/2020 14:24 Hospitalization Ordered by Dejuan Schroeder MD for Inpatient Admission. Preliminary diagnosis is Sepsis, unspecified organism; Pneumonia, unspecified organism; Altered mental status, unspecified; Hypothermia. Bed requested for Telemetry/MedSurg (Inpatient). Status is Inpatient Admission. Condition is Stable. Problem is new. Symptoms have improved. rn 19:52 15:07 08/24/2020 14:24 Hospitalization Ordered by Dejuan Schroeder MD for Inpatient Admission. Preliminary diagnosis is Sepsis, unspecified organism; Pneumonia, unspecified organism; Altered mental status, unspecified; Hypothermia. Bed requested for [facility] ER HOLD. Status is Inpatient Admission. Condition is Stable. Problem is new. Symptoms have improved. 20:19 19:52 08/24/2020 14:24 Hospitalization Ordered by Dejuan Schroeder MD for Inpatient Admission. Preliminary diagnosis is Sepsis, unspecified organism; Pneumonia, unspecified organism; Altered mental status, unspecified; Hypothermia. Bed requested for Telemetry/MedSurg (Inpatient). Status is Inpatient Admission. Condition is Stable. Problem is new. Symptoms have improved.
[2020-08-24 14:26] LABS: Urine Blood 2+ (Negative); Urine Glucose NEGATIVE (Negative); Urine Protein NEGATIVE (Negative); Urine pH 6.5 (5.0-7.0)
--- NOTE | 2020-08-24 14:30 | P.HP ---
Certification for Inpatient With expected LOS: >2 Midnights Patient will require the following post-hospital care: Long Term Practitioner: I am a practitioner with admitting privileges, knowledge of patient current condition, hospital course, and medical plan of care. Services: Services provided to patient in accordance with Admission requirements found in Title 42 Section 412.3 of the Code of Federal Regulations Patient History Date of Service: 08/24/20 Reason for admission: Pneumonia, sepsis, hypotension History of Present Illness: 84 y o female pt with hx of Dementia, Hypothyroidism, Hyperlipidemia who was brought to the ED for episode of worsenig confusion than baseline. She is non verbal at baseline. she was noted to be confused and weak. On arrival at the Ed, she was noted to be hypotensive with systolic BP in the 70s and she also had CXR finding suspicious for pneumonia with opacification in the lower lung pierson. she also had hypothermia with temp of 94 F. She was given IV fluid bolus and she was started on empiric antibiotic therapy and was admitted for inpt care. Allergies codeine Allergy (Verified 08/24/20 16:08) Hives/Rash erythromycin base Allergy (Verified 08/24/20 16:08) Hives/Rash meloxicam Allergy (Verified 08/24/20 16:08) Hives/Rash mirtazapine [From Remeron] Allergy (Verified 08/24/20 16:08) Hives/Rash Home medications list reviewed: Yes Home Medications: Buspirone HCl [Buspar] 10 mg PO TID 08/24/20 Divalproex [Depakote Sprinkle] 750 mg PO BID 08/24/20 Escitalopram Oxalate [Lexapro] 15 mg PO DAILY 08/24/20 Levothyroxine Sodium [Levothyroxine] 125 mcg PO DAILY 08/24/20 Metoprolol Tartrate 12.5 mg PO DAILY 08/24/20 Potassium Chloride 10 meq PO DAILY 08/24/20 Quetiapine [Seroquel] 50 mg PO DAILY 08/24/20 Review of Systems is unable to be obtained Physical Examination - Physical Exam General: Alert, Demented HEENT: Atraumatic, Normocephalic Respiratory: Diminished Cardiovascular: Regular rate/rhythm, Normal S1 S2 Gastrointestinal: Soft and benign Musculoskeletal: No swelling - Studies Laboratory Data (last 24 hrs) 08/24/20 13:00: WBC 4.20 L, Hgb 11.0 L, Hct 33.9 L, Plt Count 177 08/24/20 13:00: Sodium 148 H, Potassium 3.9, BUN 17, Creatinine 0.81, Glucose 81, Total Bilirubin 0.2, AST 14 L, ALT 12, Alkaline Phosphatase 59, Lipase 387 Assessment and Plan - Plan 1. Sepsis-suspected due to pneumonia but UTI is very possible. we will continue sepsis protocol with OV fluid and antibiotic of cefepime pending further review. 2.Pneumonia-suspected due to CXR findings. we will continue empiric antibiotic of cefepime and monitor cultures for adjustment of antibiotics. 3. Hypernatremia-sodium is 148 on BMP today. we will address with 1/2 NS to give free water and isotonic fluid due to hypotensive episode. prn midodrine will be continued for hypotension management. 4.Dementia-we will continue her outpt medications and other supportive care. 5.Hypothryoidism-we will continue levothyroxine. Discharge Plan: Retirement - Advance Directives Does patient have a Living Will: No Does patient have a Durable POA for Healthcare: No
[2020-08-24] MEDS ORDERED: PIPER/TAZO/NS 3.375gm 3.375 GM/100 ML BAG ONE (14:41)
[2020-08-24 14:59] LABS: SARS-COV-2 RT PCR NEGATIVE (NEGATIVE)
[2020-08-24 16:06] VITALS: BMI 23.1
[2020-08-24 16:22] LABS: Urine Bacteria <20 /HPF (<20); Urine RBC 20-50 /HPF (NONE SEEN)
[2020-08-24] MEDS: NACHLORIDE 0.45% 1,000 ML IV SCH ×2 (16:57→21:47)
[2020-08-24] MEDS ORDERED: CEFEPIME 1 GM/VIAL IV SCH (17:00)
[2020-08-24] MEDS ORDERED: CEFEPIME/SWI 1gm 10 ML ONE (17:54)
[2020-08-24] MEDS ORDERED: NACHLORIDE 0.45% 1,000 ML IV ONE (17:54)
[2020-08-24] MEDS ORDERED: IPRATROPIUM BROM 0.5MG/2.5ML ONE (19:41)
[2020-08-24] MEDS: IPRATROPIUM BROM 0.5MG/2.5ML NEB SCH (19:50)
[2020-08-24] MEDS: BUSPIRONE HCL 5 MG TABLET PO SCH (22:01)
[2020-08-24] MEDS: DIVALPROEX DR 250 MG TAB PO SCH (22:11)
[2020-08-24] MEDS: CEFEPIME/SWI 1gm 10 ML IV SCH (23:11)
[2020-08-24] MEDS ORDERED: CEFEPIME/SWI 1gm 20 ML ONE (23:25)
[2020-08-25] MEDS: IPRATROPIUM BROM 0.5MG/2.5ML NEB SCH ×4 (02:15→20:10)
[2020-08-25] MEDS: CEFEPIME/SWI 1gm 10 ML IV SCH ×3 (06:07→23:34)
[2020-08-25] MEDS: NACHLORIDE 0.45% 1,000 ML IV SCH ×2 (06:33→16:20)
[2020-08-25 06:36] LABS: Absolute Lymphocytes (CBC) 1.8 K/uL (0.7-4.9); Basophils % 1.1 % (0-1.3); Hematocrit 33.9 % (36.0-45.0); Lymphocytes % 36.3 % (15.3-44.8); MPV 9.6 fL (7.6-11.3); RBC Red Blood Cell Count 3.35 M/uL (3.86-4.86)
[2020-08-25 07:22] LABS: Magnesium 1.9 mg/dL (1.8-2.4); Potassium 3.8 mmol/L (3.5-5.1)
[2020-08-25] MEDS: LEVOTHYROXINE SOD 0.125 MG TAB PO SCH (08:42)
[2020-08-25] MEDS: QUETIAPINE 25 MG TAB PO SCH (08:42)
[2020-08-25] MEDS: METOPROLOL TAR 25 MG TAB PO SCH (08:42)
[2020-08-25] MEDS: BUSPIRONE HCL 5 MG TABLET PO SCH ×3 (08:43→22:37)
[2020-08-25] MEDS: ENOXAPARIN 40 MG/0.4 ML SQ SCH (08:43)
[2020-08-25 08:51] LABS: Blood Morphology Comment NOT SEEN (NOT SEEN); Platelet Estimate ADEQ; White Blood Cell Scan OK (OK)
[2020-08-25] MEDS ORDERED: HOME MED 1 EA UNK (Escitalopram Oxalate [Lexapro] 5 MG Tablet) PO SCH (09:00)
[2020-08-25] MEDS: DIVALPROEX DR 250 MG TAB PO SCH ×2 (09:00→22:38)
--- NOTE | 2020-08-25 14:52 | P.PN ---
Subjective Date of Service: 08/25/20 Chief Complaint: Pneumonia, sepsis, hypotension Patient is minimally verbal and cannot provide any subjective complain. Hypothermia has resolved. Patient is awake. Physical Examination - Vital Signs Temperature: 97 F Blood Pressure: 135/65 Pulse: 59 Respirations: 20 Pulse Ox (%): 99 - Physical Exam General: Other (Awake) HEENT: Mucous membr. moist/pink Neck: Supple, JVD not distended Respiratory: Clear to auscultation bilaterally, Normal air movement Cardiovascular: No edema, Regular rate/rhythm, Normal S1 S2 Gastrointestinal: Normal bowel sounds, Soft and benign, Non-distended, No tenderness Musculoskeletal: No swelling, No tenderness Integumentary: No rashes Neurological: Other (No focal motor deficit), Dementia Assessment And Plan - Current Problems (Diagnosis) (1) Sepsis Current Visit: Yes Status: Acute (2) Hypothermia Current Visit: Yes Status: Acute (3) Pneumonia Current Visit: Yes Status: Acute (4) Dementia Current Visit: Yes Status: Acute (5) Hypernatremia Current Visit: Yes Status: Acute - Plan Patient clinically improved compared to yesterday. I suspect she is at baseline mental status. Urine culture; no growth. Blood culture is pending. Continue IV antibiotics. Feeding as tolerated. Monitor CBC. Hypernatremia resolved. Continue IV NS.
--- NOTE | 2020-08-25 16:11 | EKG ---
Test Date: 2020-08-24 Test Time: 14:41:16 Professor Of Archaeology: LESLIE MEASUREMENT RESULTS: Intervals: Rate: 66 [place]: QRSD: 64 QT: 450 QTc: 471 [place]: P: [place]: QRS: 21 T: 37 INTERPRETIVE STATEMENTS: Accelerated Junctional rhythm Low voltage QRS Abnormal ECG No previous ECG available for comparison Electronically Signed On 08-25-20 16:07:13 CDT by Rajeev Nicole
[2020-08-25] MEDS ORDERED: VANCOMYCIN 1.5 GM in NA CHLORIDE 0.9% 500 ML IVPB ONE (17:00)
[2020-08-25] MEDS: ENSURE ENLIVE 237 ML CAN PO SCH (22:43)
[2020-08-26] MEDS: IPRATROPIUM BROM 0.5MG/2.5ML NEB SCH ×4 (03:35→20:00)
[2020-08-26 05:34] VITALS: O2SAT 97
[2020-08-26] MEDS: CEFEPIME/SWI 1gm 10 ML IV SCH ×3 (05:59→22:32)
[2020-08-26 06:23] LABS: Absolute Lymphocytes (CBC) 1.3 K/uL (0.7-4.9); Basophils % 0.8 % (0-1.3); Hematocrit 32.8 % (36.0-45.0); Lymphocytes % 30.7 % (15.3-44.8); RBC Red Blood Cell Count 3.27 M/uL (3.86-4.86)
[2020-08-26 06:40] LABS: Potassium 3.7 mmol/L (3.5-5.1)
[2020-08-26] MEDS: ESCITALOPRAM 20 MG TAB PO SCH (08:42)
[2020-08-26] MEDS: METOPROLOL TAR 25 MG TAB PO SCH (08:42)
[2020-08-26] MEDS: LEVOTHYROXINE SOD 0.125 MG TAB PO SCH (08:43)
[2020-08-26] MEDS: BUSPIRONE HCL 5 MG TABLET PO SCH ×3 (08:43→20:42)
[2020-08-26] MEDS: ENOXAPARIN 40 MG/0.4 ML SQ SCH (08:43)
[2020-08-26] MEDS: QUETIAPINE 25 MG TAB PO SCH (08:43)
[2020-08-26] MEDS: ENSURE ENLIVE 237 ML CAN PO SCH ×2 (08:43→20:44)
[2020-08-26] MEDS: DIVALPROEX DR 250 MG TAB PO SCH ×2 (08:43→20:43)
[2020-08-26] MEDS: NACHLORIDE 0.45% 1,000 ML IV SCH (10:53)
--- NOTE | 2020-08-26 11:32 | P.PN ---
Subjective Date of Service: 08/26/20 Chief Complaint: Pneumonia, sepsis, hypotension Patient only mutters inappropriate words and cannot give subjective complain. Overall she is awake, interactive and pleasant. She is tolerating her meals. No issues overnight, no agitation. Physical Examination - Vital Signs Temperature: 97.9 F Blood Pressure: 136/81 Pulse: 65 Respirations: 20 Pulse Ox (%): 97 - Physical Exam General: In no apparent distress, Cooperative, Other (Awake) HEENT: Mucous membr. moist/pink Respiratory: Clear to auscultation bilaterally, Normal air movement Cardiovascular: No edema, Regular rate/rhythm, Normal S1 S2 Gastrointestinal: Normal bowel sounds, Soft and benign, Non-distended, No tenderness Musculoskeletal: No swelling, No erythema Integumentary: No rashes Neurological: Other (No focal motor deficit) Assessment And Plan - Current Problems (Diagnosis) (1) Sepsis Current Visit: Yes Status: Acute (2) Hypothermia Current Visit: Yes Status: Acute (3) Pneumonia Current Visit: Yes Status: Acute (4) Dementia Current Visit: Yes Status: Acute (5) Hypernatremia Current Visit: Yes Status: Acute - Plan Patient appear clinically improved. I suspect she is at baseline mental status. Urine culture; no growth. Blood cultures: No growth to date. Continue IV antibiotics. Feeding as tolerated. Monitor CBC. Hypernatremia resolved. Discontinue IV fluid. Will continue antibiotics for 1 more day and wait for the results of 48 hr blood culture. Will discharged with oral antibiotics tomorrow if blood cultures yield no growth.
[2020-08-26] MEDS: VANCOMYCIN/NS 1 gm 1 GM/250 ML BAG IVPB SCH (16:26)
[2020-08-27] MEDS: IPRATROPIUM BROM 0.5MG/2.5ML NEB SCH ×4 (02:10→21:05)
[2020-08-27] MEDS: CEFEPIME/SWI 1gm 10 ML IV SCH (08:05)
[2020-08-27] MEDS: ENOXAPARIN 40 MG/0.4 ML SQ SCH (09:20)
[2020-08-27] MEDS: METOPROLOL TAR 25 MG TAB PO SCH (09:21)
[2020-08-27] MEDS: LEVOTHYROXINE SOD 0.125 MG TAB PO SCH (09:21)
[2020-08-27] MEDS: ESCITALOPRAM 20 MG TAB PO SCH (09:22)
[2020-08-27] MEDS: QUETIAPINE 25 MG TAB PO SCH (09:22)
[2020-08-27] MEDS: BUSPIRONE HCL 5 MG TABLET PO SCH ×3 (09:23→20:49)
[2020-08-27] MEDS: ENSURE ENLIVE 237 ML CAN PO SCH ×2 (09:27→20:49)
[2020-08-27] MEDS: DIVALPROEX DR 250 MG TAB PO SCH ×2 (09:31→20:50)
--- NOTE | 2020-08-27 14:47 | P.PN ---
Subjective Date of Service: 08/27/20 Chief Complaint: Pneumonia, sepsis, hypotension Patient only mutters inappropriate words and cannot give subjective complain. She is interactive and pleasant. She is tolerating her meals well. No issues overnight. Physical Examination - Vital Signs Temperature: 97.8 F Blood Pressure: 119/60 Pulse: 76 Respirations: 16 Pulse Ox (%): 96 - Physical Exam General: In no apparent distress, Other (Awake) HEENT: Mucous membr. moist/pink Neck: Supple Respiratory: Clear to auscultation bilaterally, Normal air movement Cardiovascular: No edema, Regular rate/rhythm, Normal S1 S2 Gastrointestinal: Soft and benign, Non-distended, No tenderness Musculoskeletal: No swelling Integumentary: No rashes Neurological: Other (No focal motor deficit) - Studies Microbiology Data (last 24 hrs): 08/24/20 14:14 Catheterized Urine [place] Count - Final <10,000 CFU/ML. 08/24/20 14:14 Catheterized Urine - Final Escherichia Coli Assessment And Plan - Current Problems (Diagnosis) (1) Sepsis Current Visit: Yes Status: Acute (2) Hypothermia Current Visit: Yes Status: Acute (3) Pneumonia Current Visit: Yes Status: Acute (4) Dementia Current Visit: Yes Status: Acute (5) Hypernatremia Current Visit: Yes Status: Acute - Plan Patient appear clinically stable. Blood culture: Coagulase-negative Staph. This is likely a skin contaminant. Urine culture is growing E. coli. Repeat blood culture is pending. I suspect she is at baseline mental status. Continue IV antibiotics. Feeding as tolerated. Monitor CBC. Hypernatremia resolved. Will discharged with oral antibiotics tomorrow once repeat blood cultures yield no growth.
[2020-08-27] MEDS: CEFTRIAXONE/SWI 1gm 1 GM/10 ML SYR IVP SCH (16:43)
[2020-08-27] MEDS: VANCOMYCIN/NS 1 gm 1 GM/250 ML BAG IVPB SCH (18:18)
[2020-08-28] MEDS: IPRATROPIUM BROM 0.5MG/2.5ML NEB SCH ×3 (02:20→14:07)
[2020-08-28] MEDS: ENOXAPARIN 40 MG/0.4 ML SQ SCH (09:00)
[2020-08-28] MEDS: DIVALPROEX DR 250 MG TAB PO SCH (09:12)
[2020-08-28] MEDS: LEVOTHYROXINE SOD 0.125 MG TAB PO SCH (09:13)
[2020-08-28] MEDS: METOPROLOL TAR 25 MG TAB PO SCH (09:13)
[2020-08-28] MEDS: BUSPIRONE HCL 5 MG TABLET PO SCH ×2 (09:13→15:35)
[2020-08-28] MEDS: QUETIAPINE 25 MG TAB PO SCH (09:13)
[2020-08-28] MEDS: ESCITALOPRAM 20 MG TAB PO SCH (09:14)
[2020-08-28] MEDS: CEFTRIAXONE/SWI 1gm 1 GM/10 ML SYR IVP SCH (09:15)
[2020-08-28] MEDS: ENSURE ENLIVE 237 ML CAN PO SCH (09:16)
--- NOTE | 2020-08-28 11:47 | P.DS ---
Admission Date: 08/24/20 Discharge Date: 08/28/20 Disposition: [facility] Discharge Condition: FAIR Reason for Admission: Pneumonia, sepsis, hypotension - Problems (1) Sepsis Current Visit: Yes Status: Acute (2) Hypothermia Current Visit: Yes Status: Acute (3) Pneumonia Current Visit: Yes Status: Acute (4) Dementia Current Visit: Yes Status: Acute (5) Hypernatremia Current Visit: Yes Status: Acute Brief History of Present Illness: 84 y o female pt with hx of Dementia, Hypothyroidism, Hyperlipidemia who was brought to the ED for episode of worsening confusion than baseline. She is non verbal at baseline. She was hypotensive with systolic BP in the 70s and she also had CXR finding suspicious for pneumonia with opacification in the lower lung pierson. She was also hypothermic with temp of 94 F. She was given IV fluid bolus, started on empiric antibiotic therapy and was admitted for further management. Hospital Course: Patient admitted to the medical floor and fitted with broad-spectrum antibiotics-vancomycin and Cefepime. One of her blood cultures said grew coagulase negative Staph. Repeat blood culture yielded no growth. Her urine culture grew E. coli which is leiva sensitive. Cefepime changed to IV Rocephin. She received 4 days of IV antibiotic therapy. Patient looks clinically improved and at baseline. She tolerated diet and ate well. Vital stable, afebrile. Patient deemed clinically stable for [facility] back to the [facility]. She is prescribed Augmentin to continue treatment for UTI and possible pneumonia. Vital Signs/Physical Exam: Temp Pulse Resp BP Pulse Ox 98.0 F 80 18 129/62 95 08/28/20 08:00 08/28/20 09:13 08/28/20 08:00 08/28/20 09:13 08/28/20 08:00 General: In no apparent distress, Other (Awake) HEENT: Mucous membr. moist/pink Neck: JVD not distended Respiratory: Clear to auscultation bilaterally, Normal air movement Cardiovascular: No edema, Regular rate/rhythm, Normal S1 S2 Gastrointestinal: Soft and benign, Non-distended, No tenderness Musculoskeletal: No swelling, No tenderness Integumentary: No rashes Neurological: Other (Moves all extremities.) Laboratory Data at Discharge: WBC 4.30 K/uL (4.3-10.9) 08/26/20 05:56 Hgb 11.2 g/dL (12.0-15.0) L 08/26/20 05:56 Hct 32.8 % (36.0-45.0) L 08/26/20 05:56 Plt Count 177 K/uL (152-406) 08/26/20 05:56 Sodium 143 mmol/L (136-145) 08/26/20 05:56 Potassium 3.7 mmol/L (3.5-5.1) 08/26/20 05:56 BUN 11 mg/dL (7-18) 08/26/20 05:56 Creatinine 0.70 mg/dL (0.55-1.3) 08/26/20 05:56 Glucose 65 mg/dL (74-106) L 08/26/20 05:56 Phosphorus 3.0 mg/dL (2.5-4.9) 08/25/20 06:41 Magnesium 1.9 mg/dL (1.8-2.4) 08/25/20 06:41 Total Bilirubin 0.2 mg/dL (0.2-1.0) 08/24/20 13:00 AST 14 U/L (15-37) L 08/24/20 13:00 ALT 12 U/L (12-78) 08/24/20 13:00 Alkaline Phosphatase 59 U/L (45-117) 08/24/20 13:00 Lipase 387 U/L (73-393) 08/24/20 13:00 Home Medications: Buspirone HCl [Buspar] 10 mg PO TID 08/24/20 Divalproex [Depakote Sprinkle*] 750 mg PO BID 08/24/20 Escitalopram Oxalate [Lexapro] 15 mg PO DAILY 08/24/20 Levothyroxine Sodium [Levothyroxine] 125 mcg PO DAILY 08/24/20 Metoprolol Tartrate 12.5 mg PO DAILY 08/24/20 Potassium Chloride 10 meq PO DAILY 08/24/20 Quetiapine [Seroquel*] 50 mg PO DAILY 08/24/20 Amox/Clavulanate [Augmentin 875-125 Tab] 1 each PO BID #12 tab 08/28/20 Ensure Enlive 237 ml PO BID can 08/28/20 New Medications: Amox/Clavulanate [Augmentin 875-125 Tab] 1 each PO BID #12 tab Diet: AHA Activity: Fall precautions Followup: Sarai Woods MD [Primary Care Provider] - Time spent managing pt's care (in minutes): 33
[2020-08-28 17:22] VITALS: BP 135/61; TEMP 97.9
[2020-08-29] MEDS ORDERED: VANCOMYCIN/NS 1 gm 1 GM/250 ML BAG IVPB SCH (05:00)
== END 2020-08-28 17:51 | DRG 871 ==
LOC: ER 12:22 → ERHOLD 14:26 → 2ND 20:10
PROVIDERS: ADMIT Internal Medicine Nephrology; ATTEND Internal Medicine
DX: A41.51 Sepsis due to Escherichia coli [E. coli] (principal); J18.9 Pneumonia, unspecified organism; G92 Toxic encephalopathy; E87.0 Hyperosmolality and hypernatremia; F03.90 Unspecified dementia, unspecified severity, without behavioral disturbance, psychotic disturbance, mood disturbance, and anxiety; I10 Essential (primary) hypertension; E03.9 Hypothyroidism, unspecified; E78.5 Hyperlipidemia, unspecified; T68.XXXA Hypothermia, initial encounter; Z88.1 Allergy status to other antibiotic agents; Z88.5 Allergy status to narcotic agent; Z88.8 Allergy status to other drugs, medicaments and biological substances; Z86.16 Personal history of COVID-19; Z79.890 Hormone replacement therapy; Z79.899 Other long term (current) drug therapy; Z20.822 Contact with and (suspected) exposure to COVID-19
CPT/HCPCS: 0240U; 36415; 51702; 71045; 80048; 80076; 80202; 81003; 81015; 82550; 82947; 83605; 83690; 83735; 84100; 84145; 84484; 85025; 87040; 87077; 87086; 87088; 87186; 87205; 92610; 93005; 96361; 96365; 96366; 99285; J0692; J0696; J1650; J2543; J3370; J7030; J7040